=== PATIENT | male | born 1935 | race Caucasian/White ===

== ENCOUNTER 2016-10-16 11:12 | Outpatient (CLI) | payer MEDICARE, OTHER ==
[2016-10-16 12:16] LABS: Bilirubin Negative (Negative); Blood, Urine Negative (Negative); Glucose, Urine (Dipstick) Negative (Negative); Ketone, Urine Negative (Negative); Nitrite Negative (Negative); Protein, Urine (Dipstick) Negative (Neg-Trace); Urobilinogen 0.2 mg/dL (0.2-1.0)
[2016-10-16 12:30] LABS: ALT (SGPT) 15 U/L (0-55); AST (SGOT) 16 U/L (5-34); Alkaline Phosphatase 71 U/L (40-150); Anion Gap 17 mmol/L (10-20); BUN (Urea Nitrogen) 17 mg/dL (8.4-25.7); Bilirubin, Total 0.7 mg/dL (0.2-1.2); Calc. Creatinine Clearance 0 mL/min (70-130); Calcium 9.3 mg/dL (7.8-10.44); Carbon Dioxide 24 mmol/L (23-31); Chloride 107 mmol/L (98-107); Estimated GFR-MDRD 59; Globulin 2.2 g/dL (2.4-3.5); LDL Cholesterol, Calculated 82 mg/dL; Protein, Total 6.4 g/dL (5.8-8.1)
[2016-10-16 13:37] LABS: Band 1 % (5-11); Hematocrit 40.9 % (42.0-52.0); Hypochromia SLIGHT = 6-15 cells (100X) (0-5/hpf); Mean Platelet Volume 5.8 fL (7.4-10.4); Neutrophil 34 % (42-75); Reactive Lymphocytes 8 % (0-10); Red Blood Cell (RBC) Count 4.33 mill/uL (4.70-6.10); White Blood Cell (WBC) Count 3.4 thou/uL (4.8-10.8)
== END 2016-10-16 11:13 | disposition home or self-care (01) ==
LOC: NAVSJIPCSP 11:12
PROVIDERS: ATTEND Internal Medicine
DX: E03.9 Hypothyroidism, unspecified (principal); I10 Essential (primary) hypertension
CPT/HCPCS: 36415; 80053; 80061; 81003; 84443; 85025; G0103

== ENCOUNTER 2018-12-08 14:41 | Emergency (ER) | payer MEDICARE ==
[2018-12-08 15:39] LABS: #Eosinphils 0.1 thou/uL (0.0-0.7); #Lymphocytes 1.5 thou/uL (1.20-3.40); #Monocytes 0.7 thou/uL (0.11-0.59); #Neutrophils 1.9 thou/uL (1.40-6.50); %Basophils 0.9 % (0.0-1.0); %Eosinophils 1.6 % (0.0-10.0); %Lymphocytes 36.5 % (21.0-51.0); %Monocytes 15.9 % (0.0-10.0); %Neutrophils 45.2 % (42.0-75.0); Hemoglobin 12.7 g/dL (14.0-18.0); Mean Corpuscular HGB CONC 32.2 g/dL (32.0-36.0); Mean Corpuscular Hemoglobin 29.9 pg (27.0-31.0); Mean Corpuscular Volume 92.8 fL (78.0-98.0); Mean Platelet Volume 5.4 fL (7.4-10.4); Platelet Count 222 thou/uL (130-400); RBC Distribution Width 13.6 % (11.5-14.5); Red Blood Cell (RBC) Count 4.23 mill/uL (4.70-6.10); White Blood Cell (WBC) Count 4.2 thou/uL (4.8-10.8)
[2018-12-08 15:45] LABS: ALT (SGPT) 18 U/L (8-55); AST (SGOT) 29 U/L (5-34); Albumin 3.7 g/dL (3.4-4.8); Alkaline Phosphatase 102 U/L (40-150); Anion Gap 20 mmol/L (10-20); BUN (Urea Nitrogen) 29 mg/dL (8.4-25.7); Bilirubin, Total 0.6 mg/dL (0.2-1.2); CK (CPK) 15 U/L (30-200); Calc. Creatinine Clearance 0 mL/min (70-130); Carbon Dioxide 23 mmol/L (23-31); Chloride 104 mmol/L (98-107); Estimated GFR-MDRD 38; Globulin 2.5 g/dL (2.4-3.5); Glucose 126 mg/dL (83-110); Protein, Total 6.2 g/dL (5.8-8.1); Sodium 143 mmol/L (136-145)
--- NOTE | 2018-12-08 15:45 | RAD ---
PORTABLE CHEST ONE VIEW: 12/08/2018 3:24 p.m. HISTORY: New onset tachycardia. FINDINGS: The heart size is normal. The aorta is tortuous. The lungs are well expanded without focal areas of consolidation, pneumothoraces, or pleural effusions. There is suggestion of a hiatal hernia. IMPRESSION: No radiographic evidence of acute cardiopulmonary process. POS: [facility]
[2018-12-08 15:50] LABS: Calcium 13.4 mg/dL (7.8-10.44)
[2018-12-08 16:12] LABS: CKMB 1.3 ng/mL (0-6.6)
[2018-12-08] MEDS ORDERED: Enoxaparin Sodium 80 MG/0.8 ML SYRINGE ONE (16:49)
== END 2018-12-08 17:09 | disposition short-term general hospital (02) ==
LOC: NAV ERS 14:41
DX: I48.91 Unspecified atrial fibrillation (principal); E03.9 Hypothyroidism, unspecified; K21.9 Gastro-esophageal reflux disease without esophagitis; I10 Essential (primary) hypertension; G30.9 Alzheimer's disease, unspecified; Z87.891 Personal history of nicotine dependence; Z79.899 Other long term (current) drug therapy
CPT/HCPCS: 71045; 80053; 82550; 82553; 83880; 84484; 85025; 93005; 94760; 96372; J1650

== ENCOUNTER 2018-12-22 16:46 | Outpatient (CLI) | payer MEDICARE ==
--- NOTE | 2018-12-22 17:02 | RAD ---
EXAM: Two views chest PROVIDED CLINICAL HISTORY: Tuberculosis. COMPARISON: 12/08/2018 FINDINGS: Cardiac silhouette and pulmonary vasculature are within normal limits. There is a hiatal hernia agai n seen at the left lung base with adjacent atelectasis present. The most inferior aspect of the left lateral costophrenic angle is excluded from view. Lungs are otherwise clear. The osseous structu res have a normal appearance. Vascular calcifications are seen in the thoracic aorta. IMPRESSION: 1. No acute cardiopulmonary process. 2. Hiatal hernia left lung base with adjacent atelectasis..
== END 2018-12-22 16:47 | disposition home or self-care (01) ==
LOC: NAV RAD 16:46
PROVIDERS: ATTEND Internal Medicine
DX: Z11.1 Encounter for screening for respiratory tuberculosis (principal)
CPT/HCPCS: 71046

== ENCOUNTER 2020-12-27 14:06 | Outpatient (CLI) | payer MEDICARE | END 2020-12-27 14:07 | disposition home or self-care (01) | LOC: NAV RAD 14:06 | PROVIDERS: ATTEND Internal Medicine | DX: I48.91 Unspecified atrial fibrillation (principal); I10 Essential (primary) hypertension | CPT/HCPCS: 71046 ==

== ENCOUNTER 2022-04-16 12:30 | Outpatient (CLI) | payer MEDICARE | END 2022-04-16 12:31 | disposition home or self-care (01) | LOC: NAV RAD 12:30 | PROVIDERS: ATTEND Nurse Practitioner | DX: I10 Essential (primary) hypertension (principal) | CPT/HCPCS: 71046 ==